=== PATIENT | female | born 1995 | race Caucasian/White ===

== ENCOUNTER → 2021-08-19 10:05 | Outpatient (CLI) | payer OTHER, SELFPAY ==
[2021-08-19 12:11] LABS: Add Manual Diff / Slide Review NO; Basophils Absolute Auto 0 /uL (0-100); Basophils Percent Auto 0.3 % (0-2); Eosinophils Absolute Auto 100 /uL (0-450); Eosinophils Percent Auto 0.7 % (2-4); Hematocrit 38.9 % (36-46); Hemoglobin 13.2 g/dL (12.0-16.0); Lymphocytes Absolute Auto 2500 /uL (1100-4500); Lymphocytes Percent Auto 34.7 % (25-40); Mean Corpuscular HGB Conc 33.9 % (30-36); Mean Corpuscular Hemoglobin 30.6 PG (26-34); Mean Corpuscular Volume 90.2 fL (80-100); Monocytes Absolute Auto 500 /uL (0-900); Monocytes Percent Auto 6.8 % (3-14); Neutrophils Absolute Auto 4100 /uL (1500-7000); Neutrophils Percent Auto 57.5 % (50-75); Platelet Count 188 X10^3/uL (150-400); Red Blood Cell Count 4.32 X10^6/uL (4.0-5.2); Red Cell Distribution Width 12.7 % (11.6-14.8); White Blood Cell Count 7.1 X10^3/uL (4.5-11.0)
[2021-08-19 12:19] LABS: Appearance Urine UA CLEAR; Bilirubin Urine UA NEGATIVE (NEGATIVE); Color Urine UA YELLOW; Glucose Urine UA NEGATIVE (Negative); Ketones Urine UA NEGATIVE (NEGATIVE); Leukocyte Esterase Urine UA NEGATIVE (NEGATIVE); Nitrite Urine UA NEGATIVE (Negative); Occult Blood Urine UA 3+ (Negative); Protein Urine UA 1+ (Negative); Urobilinogen Urine UA 0.2 E.U./dL (0.2)
[2021-08-19 12:20] LABS: pH Urine UA 6.5 (4.5-8.0)
[2021-08-19 12:26] LABS: Bacteria Urine None Seen; Culture Indicated Urine Cult Not Indicated; RBC Urine 5-10/HPF (0-5/HPF); WBC Urine None Seen (0-5/HPF)
[2021-08-19 13:02] LABS: Hepatitis B Surface Antigen NEGATIVE s/c (NEGATIVE); Rubella Antibody IgG 3.7 IU/mL (>15)
[2021-08-19 13:17] LABS: HIV 1 & 2 Ab/Ag 4th Gen Combo NEGATIVE (NEGATIVE); Hep C Virus Ab w/Reflex Quant NEGATIVE s/c (NEGATIVE)
[2021-08-20 05:23] LABS: RPR Screen Non Reactive (Non Reactive)
[2021-08-20 08:58] LABS: Varicella IgG Antibody <135 index (Immune >165)
== END ==
PROVIDERS: Referring Provider Obstetrics & Gynecology; Visit Provider Obstetrics & Gynecology
DX: Z34.81 Encounter for supervision of other normal pregnancy, first trimester (principal)
CPT/HCPCS: 36415; 80055; 81003; 81015; 86787; 86803; 86850; 86900; 86901; 87086; 87389

== ENCOUNTER → 2021-09-14 15:44 | Outpatient (CLI) | payer OTHER, SELFPAY ==
[2021-09-18 13:22] LABS: AFP Value 24.2 ng/mL (.); Gestational Age Ultrasound (.); Insulin Dep Diabetes No (.); OSBR Risk 1IN 10000 (.); Results Report (.); Test Results *Screen Negative* (.)
== END ==
PROVIDERS: Referring Provider Obstetrics & Gynecology; Visit Provider Obstetrics & Gynecology
DX: Z34.82 Encounter for supervision of other normal pregnancy, second trimester (principal); Z3A.16 16 weeks gestation of pregnancy
CPT/HCPCS: 36415; 82105

== ENCOUNTER → 2021-10-13 14:45 | Outpatient (CLI) | payer OTHER, SELFPAY ==
--- NOTE | 2021-10-13 14:46 | DI.US.S_ITS ---
PROCEDURE: US OB >= 14 WEEKS FETUS INDICATIONS: anatomy scan OUTSIDE/PRIOR DATING DATA: Last menstrual period (LMP): May 26, 2021. LMP-based estimated date of delivery (MARILIN): March 02, 2022. First dating scan (date and location): October 13, 2021, [facility] Estimated date of delivery (MARILIN) from first dating scan: March 04, 2022. TECHNIQUE: Real-time scanning was performed of the fetus, with image documentation and biometric measurements. Endovaginal scanning: Not performed COMPARISON: None. FINDINGS: General: A single living intrauterine gestation is present. Presentation: Transverse to the right. Placenta: Placental position is anterior , without previa. Amniotic fluid index: 11.5 cm, normal range is 5-24 cm. heart rate: 141 beats per minute. Maternal cervical canal: 4.8 cm long. Normal lower limit is 2.5 cm. biometrics: Biparietal diameter: 4.3 cm, 19 weeks, 0 days Head circumference: 16.9 cm, 19 weeks 4 days Abdominal circumference: 14.3 cm, 19 weeks, 4 days Femur length: 3.3 cm, 20 weeks, 3 days Clinically estimated gestational age: Not applicable Composite gestational age from present scan: 19 weeks, 5 days Estimated weight and percentile: 320 g, 40 % Anatomic survey: Neuro: Ventricles are non-dilated at less than 10 mm. Cisterna magna is normal at 3-11 mm. Cerebellum is normal in size and morphology. Nuchal skin fold: Normal at less than 6 mm between 14-21 weeks gestational age. Face: Nose and lips, facial profile are normal. Spine: No evidence for spina bifida. Heart: 4-chambered heart is present, with normal ventricular outflow tracts. Diaphragm: Diaphragm is intact. Stomach: Left-sided stomach is present. Kidneys: No hydronephrosis. Normal is less than 5 mm in 2nd trimester, less than 7 mm in 3rd trimester. Cord: 3-vessel cord has orthotopic insertion. Bladder: Normal in size. Extremities: All 4 extremities identified. IMPRESSION: 1. Single live intrauterine gestation with a composite gestational age of 19 weeks, 5 days. 2. No sonographic anatomic abnormalities. We strive to produce accurate, complete, and clear reports of imaging services. To assist us in improving patient care, this report was composed using standard report templates and voice recognition software. Therefore, it may contain abnormal punctuation, insertions and/or omissions. Occasional wrong-word or sound-alike substitutions may occur. Though we review the report and make efforts to correct it, we do recommend that the report be read carefully in proper context to recognize any text inaccuracies. Dictated by: Jenny Levine M.D. on 10/13/2021 at 16:46 Approved by: Jenny Levine M.D. on 10/13/2021 at 16:49
== END ==
PROVIDERS: Referring Provider Obstetrics & Gynecology; Visit Provider Obstetrics & Gynecology
DX: Z34.82 Encounter for supervision of other normal pregnancy, second trimester (principal); Z3A.20 20 weeks gestation of pregnancy
CPT/HCPCS: 76811